=== PATIENT | female | born 1975 | race Two or more races ===

== ENCOUNTER → 2025-08-29 | Outpatient (REF) | payer OTHER ==
[2025-08-31 14:43] LABS: HPV APTIMA Detected (Not Detected)
== END ==
LOC: M SFHCLERA 17:29
DX: Z12.4 Encounter for screening for malignant neoplasm of cervix (principal); R87.618 Other abnormal cytological findings on specimens from cervix uteri

== ENCOUNTER → 2025-08-29 | Outpatient (REF) | payer OTHER ==
[2025-08-29 18:48] LABS: ALT/SGPT 19 U/L (7.0-40); AST/SGOT 17 U/L (<34); CALCIUM LEVEL 8.7 MG/DL (8.5-10.1); CARBON DIOXIDE LEVEL 26 MMOL/L (20-31); CHLORIDE LEVEL 105 MMOL/L (98-107); CHOLESTEROL LEVEL 177 MG/DL (<200); CHOLESTEROL RISK RATIO 5.56 (<5); CREATININE FOR GFR 0.69 MG/DL (0.55-1.30); GLOMERULAR FILTRATION RATE > 90.0 (>58); LDL CHOLESTEROL 96.8 MG/DL (<100); NON-HDL-C 145.2 MG/DL; POTASSIUM SERUM 3.7 MMOL/L (3.5-5.1); SODIUM LEVEL 135 MMOL/L (136-145); TRIGLYCERIDES LEVEL 242 MG/DL (<150)
[2025-08-29 18:52] LABS: BASO # 0.1 10^3/uL (0.0-0.2); BASO % 0.5 % (0.0-1.0); EOS # 0.1 10^3/uL (0.0-0.5); EOS % 0.8 % (0.0-3.0); LYMPH # 2.1 10^3/uL (1.5-5.0); LYMPH % 17.2 % (24.0-44.0); MONO # 0.4 10^3/uL (0.0-0.8); MONO % 3.5 % (2.0-8.0); NEUTROPHILS # 9.3 10^3/uL (1.5-8.5); NEUTROPHILS % 77.7 % (36.0-66.0); PLATELET COUNT, AUTOMATED 342 10^3/uL (150-450)
[2025-08-29 18:53] LABS: TOTAL 25(OH) VITAMIN D 24.2 NG/ML (20.0-100.0)
[2025-08-29 19:18] LABS: HIV 1&2 SCREEN NEGATIVE (NEGATIVE)
[2025-08-29 19:24] LABS: ESTIMATED AVERAGE GLUCOSE 88.0 MG/DL (60-110)
[2025-08-29 19:25] LABS: HEPATITIS C VIRUS ABY INDEX 0.02 INDEX (<0.8)
== END ==
LOC: M SFHCLERA 14:07
PROVIDERS: ATTEND Internal Medicine
DX: Z00.00 Encounter for general adult medical examination without abnormal findings (principal); E66.09 Other obesity due to excess calories

== ENCOUNTER 2025-10-24 07:47 | Day surgery (SDC) | payer OTHER ==
[~2025-10-24] VITALS: Ht 167.6 cm; Wt 83.7 kg
[2025-10-24] MEDS ORDERED: LIDOCAINE 2% 100 MG/5 ML SDV (FOR ANES.) As Ordered ONE (08:50)
[2025-10-24 09:14] VITALS: TEMP 98.9
[2025-10-24 09:26] VITALS: BP 133/85; O2SAT 99
== END 2025-10-24 09:35 | disposition home or self-care (01) ==
LOC: M OPP 07:47
PROVIDERS: ATTEND Internal Medicine Gastroenterology
DX: Z12.11 Encounter for screening for malignant neoplasm of colon (principal); D12.2 Benign neoplasm of ascending colon; D12.5 Benign neoplasm of sigmoid colon; K64.8 Other hemorrhoids; F17.290 Nicotine dependence, other tobacco product, uncomplicated